=== PATIENT | female | born 1965 | race Caucasian/White ===

== ENCOUNTER → 2016-06-20 | Outpatient (CLI) | payer BC, MEDICARE | LOC: LAB 16:26 | DX: C96.A Histiocytic sarcoma (principal) | CPT/HCPCS: 36415; 82565; 84520 ==

== ENCOUNTER → 2016-06-21 | Outpatient (CLI) | payer MEDICARE, BC | LOC: CT 08:00 → OPSV 08:27 → CT 08:27 | DX: C96.A Histiocytic sarcoma (principal); R93.5 Abnormal findings on diagnostic imaging of other abdominal regions, including retroperitoneum | CPT/HCPCS: 71260; J1642; J7050; Q9962 ==

== ENCOUNTER → 2016-07-30 | Outpatient (CLI) | payer MEDICARE, BC | LOC: RT 15:46 | DX: E88.89 Other specified metabolic disorders (principal) | CPT/HCPCS: 94060; 94729 ==

== ENCOUNTER → 2016-11-11 | Outpatient (CLI) | payer MEDICARE, BC ==
[2016-11-11 13:14] LABS: HEMOGLOBIN 13.6 gm/dl (12.3-15.3); RED BLOOD COUNT 4.39 M/UL (4.00-5.10)
[2016-11-11 13:41] LABS: BUN/CREATININE RATIO 31 (0-10)
== END ==
LOC: LAB 11:35
PROVIDERS: Internal Medicine Hematology & Oncology
DX: C96.A Histiocytic sarcoma (principal)
CPT/HCPCS: 36415; 80053; 85025

== ENCOUNTER 2020-06-28 06:04 | Inpatient (IN) | payer MEDICARE, BC ==
[~2020-06-28] VITALS: Ht 147.3 cm; Wt 44.5 kg
[~2020-06-28 06:04] MED LIST: DDAVP 0.0110 MCG/0.1; GINGER ROOT550 MG PO; IBUPROFEN600 MG PO; KEFLEX CAP 500500 MG PO; MACROBID 100 M100 MG PO; NORCO 7.5-3251 EACH PO; ORAZINC220 MG PO; PYRIDIUM200 MG PO; SYNTHROID112 MCG PO; VITAMIN C 500500 MG PO; ZOFRAN4 MG PO
[2020-06-28 09:10] LABS: HEMOGLOBIN 9.3 gm/dl (12.3-15.3); RED BLOOD COUNT 3.02 M/UL (4.00-5.10); WHITE BLOOD COUNT 6.6 K/UL (4.5-11.0)
[2020-06-28 09:22] LABS: BUN/CREATININE RATIO 13 (0-10)
[2020-06-28] MEDS ORDERED: LEVOTHYROXINE100 MC2 PO (13:03)
[2020-06-28] MEDS ORDERED: HYDROCODON-ACE1 EAC2 PO (13:06)
[2020-06-28] MEDS ORDERED: HYDROCODON-ACE1 EAC4 PO (13:07)
[2020-06-28] MEDS ORDERED: MORPHINE SULFAT15 MG PO (13:10)
[2020-06-28] MEDS ORDERED: CREON DR 36,001 EACH PO (13:10)
[2020-06-28] MEDS ORDERED: ALORA1 EAC1 TD (13:11)
[2020-06-28] MEDS ORDERED: EVENITY (2210 MG/2.3 SQ (13:11)
[2020-06-28] MEDS ORDERED: ADDERALL 15 MG15 MG PO ×2 (13:12→13:13)
[2020-06-28] MEDS ORDERED: CYANOCOBAL1000 MCG/1 INJ (13:14)
[2020-06-28 15:18] LABS: BUN/CREATININE RATIO 14 (0-10)
[2020-06-28 18:47] LABS: BUN/CREATININE RATIO 13 (0-10)
[2020-06-28 22:29] LABS: BUN/CREATININE RATIO 12 (0-10)
[2020-06-29 02:20] LABS: HEMOGLOBIN 8.5 gm/dl (12.3-15.3); RED BLOOD COUNT 2.78 M/UL (4.00-5.10); WHITE BLOOD COUNT 6.1 K/UL (4.5-11.0)
[2020-06-29 02:38] LABS: BUN/CREATININE RATIO 11 (0-10)
[2020-06-29 07:07] LABS: BUN/CREATININE RATIO 11 (0-10)
[2020-06-29 13:31] LABS: BUN/CREATININE RATIO 13 (0-10)
[2020-06-29 16:28] LABS: BUN/CREATININE RATIO 13 (0-10)
[2020-06-29] MEDS ORDERED: PROZAC40 MG PO (17:46)
[2020-06-29 20:54] LABS: BUN/CREATININE RATIO 10 (0-10)
[2020-06-29 23:52] LABS: BUN/CREATININE RATIO 10 (0-10)
[2020-06-30 05:35] LABS: BUN/CREATININE RATIO 10 (0-10)
[2020-06-30 08:43] LABS: BUN/CREATININE RATIO 10 (0-10)
[2020-06-30 13:20] LABS: BUN/CREATININE RATIO 5 (0-10)
[2020-06-30 22:32] LABS: BUN/CREATININE RATIO 5 (0-10)
--- NOTE | 2020-07-01 02:31 | NUR ---
PT REQUESTING SOMETHING TO HELP HER SLEEP. REQUEST VALIUM SHE HAS TOOK BEFORE. DR MARCOS NOTIFIED AND ORDERED AMBIEN 5MG X1
--- NOTE | 2020-07-01 02:32 | NUR ---
0200 - PT VERY CONFUSED THINKS SHE IS HOME NOT IN THE HOSPITAL. TALKING TO PEOPLE NOT THERE. PT TRYING TO LEAVE AND WALK OUT OF ROOM. NOTIFIED DR MARCOS PT HISTORY AND SITUATION. ORDERS NOTED FOR [place]
[2020-07-01 07:46] LABS: BUN/CREATININE RATIO 7 (0-10)
--- NOTE | 2020-07-01 10:49 | NUR ---
IT WAS REPORTED TO ME AT 1000 BY SHEELA THAT MY PATIENT WAS FOUND SITTING IN THE FLOOR BESIDE THE BED YESTERDAY AT APPX 4M. SHE SAID THE BED ALARM WENT OFF AND HER AND KASHIF RUSHED IN TO FIND HER LIKE THIS. I WAS MOST LIKELY IN MY COVID ROOM DOING MY ADMISSION YESTERDAY WHRN THIS TRANSPIED AT APPX 4PM. I WAS UNAWARE OF THIS EVENT UNTIL NOW. NO NEW COMPLAINTS OR INJURIES REPORTED BY THE PATIENT.
[2020-07-01] MEDS ORDERED: CORTEF5 MG PO (15:18)
[2020-07-01] MEDS ORDERED: VITAMIN B-121000 MCG PO (15:25)
[2020-07-01] MEDS ORDERED: VITAMIN D250 MCG PO (15:27)
[2020-07-01 19:23] LABS: BUN/CREATININE RATIO 10 (0-10)
[2020-07-02 07:32] LABS: HEMOGLOBIN 10.4 gm/dl (12.3-15.3); RED BLOOD COUNT 3.42 M/UL (4.00-5.10); WHITE BLOOD COUNT 6.1 K/UL (4.5-11.0)
[2020-07-02 07:41] LABS: BUN/CREATININE RATIO 8 (0-10)
[2020-07-03 05:51] LABS: BUN/CREATININE RATIO 24 (0-10)
[2020-07-04 07:48] LABS: BUN/CREATININE RATIO 29 (0-10)
[2020-07-06 06:33] LABS: HEMOGLOBIN 9.5 gm/dl (12.3-15.3); RED BLOOD COUNT 3.1 M/UL (4.00-5.10); WHITE BLOOD COUNT 8.1 K/UL (4.5-11.0)
[2020-07-06 07:00] LABS: BUN/CREATININE RATIO 26 (0-10)
[2020-07-07 08:15] LABS: BUN/CREATININE RATIO 22 (0-10)
== END 2020-07-08 13:58 | disposition home health service (06) | DRG 643 ==
LOC: ER1 06:04 → CDU 10:48 → MED SURG 4 06-29 10:07
PROVIDERS: Internal Medicine Infectious Disease; Internal Medicine Nephrology; Physician Assistant Medical; ADMIT Internal Medicine
DX: E22.2 Syndrome of inappropriate secretion of antidiuretic hormone (principal); G93.41 Metabolic encephalopathy; E27.40 Unspecified adrenocortical insufficiency; N30.00 Acute cystitis without hematuria; F11.20 Opioid dependence, uncomplicated; R44.3 Hallucinations, unspecified; E23.2 Diabetes insipidus; E03.9 Hypothyroidism, unspecified; G89.4 Chronic pain syndrome; Z20.822 Contact with and (suspected) exposure to COVID-19; E87.6 Hypokalemia; E88.89 Other specified metabolic disorders; B96.89 Other specified bacterial agents as the cause of diseases classified elsewhere; M41.9 Scoliosis, unspecified; Z88.8 Allergy status to other drugs, medicaments and biological substances; Z82.49 Family history of ischemic heart disease and other diseases of the circulatory system; Z80.1 Family history of malignant neoplasm of trachea, bronchus and lung; Z84.89 Family history of other specified conditions; Z85.028 Personal history of other malignant neoplasm of stomach; Z90.3 Acquired absence of stomach [part of]; Z79.890 Hormone replacement therapy; Z79.899 Other long term (current) drug therapy; Z98.890 Other specified postprocedural states
CPT/HCPCS: 36415; 72100; 80048; 80053; 81001; 83735; 83930; 83935; 84100; 85025; 85027; 87077; 87086; 87186; 96365; 96372; 96374; 96375; 96376; 97110; 97116; 97116-GP-CQ; 97161; 97165; 97530-GP-CQ; 97535; 99284; G0378; J0696; J1170; J2405; J3420; J3480; J3486; J7030; U0002

== ENCOUNTER → 2021-03-01 | Outpatient (CLI) | payer MEDICARE, BC ==
[~2021-03-01] MED LIST changes: +ADDERALL 15 MG15 MG PO; +ALORA1 EAC1 TD; +CORTEF5 MG PO; +CREON DR 36,001 EACH PO; +CYANOCOBAL1000 MCG/1 INJ; +EVENITY (2210 MG/2.3 SQ; +HYDROCODON-ACE1 EAC2 PO; +HYDROCODON-ACE1 EAC4 PO; +LEVOTHYROXINE100 MC2 PO; +MORPHINE SULFAT15 MG PO; +PROZAC40 MG PO; +VITAMIN B-121000 MCG PO; +VITAMIN D250 MCG PO
== END ==
LOC: HEART 5 02-28 08:00
DX: R05.3 Chronic cough (principal)
CPT/HCPCS: 93306

== ENCOUNTER → 2021-03-29 | Outpatient (CLI) | payer MEDICARE, BC | LOC: HEART 5 15:37 | DX: R05.3 Chronic cough (principal) | CPT/HCPCS: 94060; 94729 ==

== ENCOUNTER → 2021-04-12 | Outpatient (CLI) | payer MEDICARE, BC | LOC: HEART 5 16:17 | DX: R05.9 Cough, unspecified (principal); R06.02 Shortness of breath | CPT/HCPCS: 95012 ==

== ENCOUNTER → 2021-04-13 | Outpatient (CLI) | payer MEDICARE, BC ==
[~2021-04-13] VITALS: Ht 147.3 cm; Wt 45.8 kg
== END ==
LOC: HEART 5 09:19
DX: R05.3 Chronic cough (principal); K21.9 Gastro-esophageal reflux disease without esophagitis
CPT/HCPCS: J7674